=== PATIENT | male | born 1990 | race Caucasian/White ===

== ENCOUNTER 2021-02-20 20:19 | Emergency (ER) | payer OTHER ==
[2021-02-20] MEDS ORDERED: Lidocaine 1% with EPINEPHrine 1:100,000 20 ML MDV ONE (20:37)
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
[2021-02-20] MEDS ORDERED: Lidocaine 1% with EPINEPHrine 1:100,000 20 ML MDV INJECT ONE (21:21)
[2021-02-20 21:38] VITALS: BP 133/77; PULSE 95
[2021-02-20] MEDS ORDERED: Bacitracin/Neomycin/Polymyxin B Oint 0.9 GM U/D Packet ONE (22:14)
[2021-02-20] MEDS ORDERED: Bacitracin/Neomycin/Polymyxin B Oint 28.4 GM Tube TOP ONE (22:17)
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
== END 2021-02-20 22:45 | disposition home or self-care (01) ==
LOC: KA.ED 20:19
DX: S01.312A Laceration without foreign body of left ear, initial encounter (principal); V86.55XA Driver of 3- or 4- wheeled all-terrain vehicle (ATV) injured in nontraffic accident, initial encounter; Y92.410 Unspecified street and highway as the place of occurrence of the external cause
CPT/HCPCS: 12013; 72070; 72125; 73030-LT; 99284; 99284-25